=== PATIENT | male | born 1955 | race Caucasian/White ===

== ENCOUNTER 2016-11-14 15:24 | Inpatient (IN) | payer BC ==
[~2016-11-14] VITALS: Ht 198.1 cm; Wt 86.9 kg
[~2016-11-14 15:24] MED LIST changes: -NORCO 325 MG-7.1 TAB PO; -PROSCAR 5MG5 MG PO
[2016-11-14 15:36] VITALS: BP 149/66; PULSE 77; TEMP 98.1
[2016-11-14] MEDS ORDERED: PROSCAR 5MG5 MG PO (16:22)
[2016-11-14 18:48] VITALS: BP 159/73; PULSE 80; TEMP 97.9
[2016-11-14 22:10] VITALS: BP 161/75; PULSE 80; TEMP 98.1
[2016-11-15] VITALS (13 sets, daily range): BP systolic 129–159; BP diastolic 47–82; PULSE 59–102; TEMP 98–98.5
[2016-11-15 07:26] LABS: HEMATOCRIT 39.8 % (42.0-52.0); HEMOGLOBIN 13.2 g/dl (13.5-18.0); MEAN CELL VOLUME 91 fl (80.0-100.0); MEAN CORPUSCULAR HEMOGLOBIN 30 pg (27.0-31.0); MEAN CORPUSCULAR HGB CONC 33 g/dl (33.0-37.0); MEAN PLATELET VOLUME 9.8 fl (7.4-10.4); PLATELET COUNT 195 K/mm3 (130-400); REDCELL DISTRIBUTION WIDTH-CV 13.1 % (11.5-14.5); WHITE BLOOD COUNT 8.2 K/mm3 (4.8-10.8)
[2016-11-15 07:46] LABS: CREATININE, serum 0.89 mg/dL (0.66-1.25); POTASSIUM 3.6 mmol/L (3.4-5.0)
[2016-11-16 02:11] VITALS: BP 137/59; PULSE 84; TEMP 98.2
[2016-11-16 05:43] VITALS: BP 149/61; PULSE 85; TEMP 98.2
[2016-11-16 09:16] VITALS: BP 156/66; PULSE 65; TEMP 97.6
[2016-11-16 13:50] VITALS: BP 168/75; PULSE 76; TEMP 97.4
[2016-11-16 17:40] VITALS: BP 160/77; PULSE 71; TEMP 97.9
[2016-11-16 21:13] VITALS: BP 161/75; PULSE 71; TEMP 98.3
[2016-11-17] VITALS (7 sets, daily range): BP systolic 141–168; BP diastolic 63–85; PULSE 73–95; TEMP 97.5–98.3
[2016-11-18 01:37] VITALS: BP 154/82; PULSE 78; TEMP 98
[2016-11-18 05:09] VITALS: BP 156/78; PULSE 73; TEMP 98.1
[2016-11-18 09:53] VITALS: BP 152/68; PULSE 107; TEMP 97.7
[2016-11-18] MEDS ORDERED: NORCO 325 MG-7.1 TAB PO (11:17)
== END 2016-11-18 11:28 | disposition home or self-care (01) | DRG 330 ==
LOC: SURG 15:24
PROVIDERS: Surgery
PROC: 0DTN0ZZ Resection of Sigmoid Colon, Open Approach (ICD-10-PCS; principal; 2016-11-15 14:30)
PROC: 0WJP4ZZ Inspection of Gastrointestinal Tract, Percutaneous Endoscopic Approach (ICD-10-PCS; 2016-11-15 14:30)
DX: K57.20 Diverticulitis of large intestine with perforation and abscess without bleeding (principal)
CPT/HCPCS: A4315; A9284; E0710; J1100; J1650; J1885; J1956; J2250; J2405; J2704; J2710; J2765; J2795; J3010; J7030; J7120; Q9967

== ENCOUNTER → 2016-11-14 | Outpatient (CLI) | payer BC ==
[~2016-11-14] MED LIST: ALLEGRA 180MG180 MG PO; FLAGYL500 MG PO; FLOMAX 0.40.4 MG/CAP PO; LEVAQUIN 750MG750 M1 PO; NORCO 325 MG-7.1 TAB PO; PROSCAR 5MG5 MG PO
== END ==
LOC: COL.RAD 13:02
DX: R10.84 Generalized abdominal pain (principal); Z87.19 Personal history of other diseases of the digestive system
CPT/HCPCS: Q9967

== ENCOUNTER 2023-09-05 14:05 | Emergency (ER) | payer MEDICARE ==
[~2023-09-05] VITALS: Ht 198.1 cm; Wt 90.9 kg
[~2023-09-05 14:05] MED LIST changes: +NORCO 325 MG-7.1 TAB PO; +PROSCAR 5MG5 MG PO
[2023-09-05 14:12] VITALS: TEMP 97.5
[2023-09-05 14:37] LABS: BASO % 0.2 % (0.0-2.0); EOS # 0.1 K/mm3 (0.0-0.7); GRAN # 2.9 K/mm3 (1.4-6.5); GRAN % 59.2 % (42.2-75.2); HEMATOCRIT 45.4 % (42.0-52.0); HEMOGLOBIN 15.5 g/dl (13.5-18.0); LYMPH # 1.2 K/mm3 (1.2-3.4); LYMPH % 25.1 % (20.0-51.0); MEAN CELL VOLUME 88 fl (80.0-100.0); MEAN CORPUSCULAR HEMOGLOBIN 30 pg (27-31); MEAN CORPUSCULAR HGB CONC 34 g/dl (33.0-37.0); MEAN PLATELET VOLUME 9.1 fl (7.4-10.4); MONO # 0.7 K/mm3 (0.1-0.6); MONO % 13.3 % (1.7-9.3); PLATELET COUNT 176 K/mm3 (130-400); RED BLOOD COUNT 5.17 M/mm3 (4.20-5.60); REDCELL DISTRIBUTION WIDTH-CV 13.2 % (11.5-14.5)
[2023-09-05 14:53] LABS: ALANINE AMINOTRANSFERASE 15 U/L (0-55); ALBUMIN 3.9 gm/dL (3.4-4.8); ALKALINE PHOSPHATASE 78 U/L (40-150); ANION GAP 11 mmol/L (7-16); AST,SGOT 21 U/L (5-34); BILIRUBIN,TOTAL 0.4 mg/dL (0.2-1.2); BLOOD UREA NITROGEN 15 mg/dL (8-26); CALCIUM 9.1 mg/dL (8.4-10.2); CARBON DIOXIDE 22 mmol/L (23-31); CHLORIDE 109 mmol/L (98-107); CREATININE, serum 1.16 mg/dL (0.72-1.25); GLUCOSE 122 mg/dL (70-99); POTASSIUM 3.6 mmol/L (3.5-4.5); SODIUM 142 mmol/L (136-145); TOTAL PROTEIN 6.8 gm/dL (6.2-8.1)
[2023-09-05 15:13] LABS: TSH w REFLEX 0.757 uIU/mL (0.350-4.940)
[2023-09-05 15:27] LABS: TROPONIN-I < 0.010 ng/mL (0.00-0.033)
[2023-09-05 15:51] VITALS: BP 161/81; PULSE 83
== END 2023-09-05 15:53 | disposition home or self-care (01) ==
LOC: COL.ER 14:05
PROVIDERS: Emergency Medicine
DX: I10 Essential (primary) hypertension (principal); Z87.891 Personal history of nicotine dependence